=== PATIENT | female | born 1955 | race American Indian/Alaskan Native ===

== ENCOUNTER 2016-03-26 11:07 | Outpatient (CLI) | payer OTHER ==
--- NOTE | 2016-03-26 16:23 | Mammography Report ---
BILATERAL DIGITAL SCREENING MAMMOGRAM with CAD: 03/26/16 11:07:00 CLINICAL: Routine screening. COMPARISON:None available. FINDINGS: The breasts are almost entirely fatty. No mass, architectural distortion or suspicious calcifications. IMPRESSION: No mammographic evidence of malignancy. BI-RADS CATEGORY: 1 - - Negative RECOMMENDATION: Routine mammographic screening in one year. COMMENT: Patient follow-up letters are generated by our [employer] application.
== END 2016-03-26 11:08 | disposition home or self-care (01) ==
LOC: SPVWC 11:07
PROVIDERS: ATTEND Family Medicine
DX: Z12.31 Encounter for screening mammogram for malignant neoplasm of breast (principal)
CPT/HCPCS: 77067; G0202

== ENCOUNTER 2018-11-21 13:03 | Outpatient (CLI) | payer BC ==
--- NOTE | 2018-11-24 14:28 | Mammography Report ---
BONE DEXA CLINICAL: Postmenopausal. TECHNIQUE: 3 site bone DEXA performed on an Hologic scanner. FINDINGS: The average BMD of the lumbar spine L1-L4 is 1.099g/cm squared with a T score of -0.5 and a Z score o f +1.3. The average total BMD of the right hip is 1.050 g/cm squared with a T score of +0.1and a Z score of + 1.0. The right femoral neck BMD is 0.708 g/cm squared with a T score of -1.7 and a Z score of -0.6. IMPRESSION: 1. WHO classification: Normal with average fracture risk based on spine and total right hip measureme nts. 2. WHO classification Osteopenia with increased fracture risk based on right femoral neck measurement s. RECOMMENDATION: Clinical correlation and routine screening. Definitions: BMD equal bone mineral density T score = BMD related to peak bone mass of young adult (Nichole expressed an standard deviation) Z score = age-matched BMD expressed in SD World health organization (WHO) diagnostic criteria Normal T score greater than equal to 1 standard deviation Osteopenia T score between -1 and -2.4 standard deviation Osteoporosis T score -2.5 standard deviation or below. Note: BMD is not the only risk factor for fracture; also consider factors such as the patient's age, risk of falling, previous osteoporotic fracture, family history of osteoporotic fractures, current sm oker and low body weight. Z scores are not calculated if greater than 80 years of age. Signer Name: Tyrel Mayer MD Signed: 11/24/2018 2:24 PM Workstation Name: [id number]
--- NOTE | 2018-11-25 08:23 | Mammography Report ---
DIGITAL SCREENING MAMMOGRAM WITHOUT CAD, 11/21/2018 INDICATION: Routine screening mammography. TECHNIQUE: Digital bilateral 2D mammography was obtained in the craniocaudal and mediolateral obliq ue projections. Technical reasons, Computer-Aided Detection analysis was not utilized. COMPARISON: 03/26/2016 FINDINGS: Breast Density: The breasts are almost entirely fatty. There is no evidence of dominant mass, suspicious calcifications or architectural distortion in eithe r breast. IMPRESSION: No mammographic evidence of malignancy. Follow up recommendation: Routine yearly BI-RADS Category 1: Negative. A "normal" or negative report should not discourage follow up or biopsy of a clinically significant f inding. A written summary of these findings will be mailed to the patient. The patient will be entered into a mammography reporting system which will generate a reminder letter for the patient's next appointmen t at the appropriate interval. The [employer] recommends yearly mammograms starting at age 40 and continuing as l mely as a woman is in good health. Breast MRI is recommended for women with an approximate 20-25% or greater lifetime risk of breast cancer, including women with a strong family history of breast or ova nikki cancer or who have been treated for Hodgkin's disease. Signer Name: Tyrel Mayer MD Signed: 11/25/2018 8:19 AM Workstation Name: [id number]
== END 2018-11-21 13:04 | disposition home or self-care (01) ==
LOC: SPVWC 13:03
PROVIDERS: ATTEND Internal Medicine
DX: Z12.31 Encounter for screening mammogram for malignant neoplasm of breast (principal); Z78.0 Asymptomatic menopausal state
CPT/HCPCS: 77067; 77080